=== PATIENT | male | born 1995 | race Caucasian/White ===

== ENCOUNTER 2022-02-21 01:38 | Emergency (ER) | payer OTHER ==
[2022-02-21 01:52] VITALS: BP 130/84; PULSE 66; RESP 18; TEMP 97.4; BMI 31.9
== END 2022-02-21 03:36 | disposition home or self-care (01) ==
LOC: JER 01:38
DX: R07.9 Chest pain, unspecified (principal)
CPT/HCPCS: 71046-TC-FY; 93005; 93010; 99284-25

== ENCOUNTER 2022-07-30 04:24 | Day surgery (SDC) | payer OTHER ==
[2022-07-28 11:40] VITALS: BMI 31.1
[2022-07-30] MEDS ORDERED: BACITRACIN ZINC 15 GM TUBE TOPICAL OINTMENT ONE ×2 (10:45→13:42)
[2022-07-30] MEDS ORDERED: ROCURONIUM BROMIDE 50 MG/5 ML SYRINGE ONE (11:59)
[2022-07-30] MEDS ORDERED: PROPOFOL 20 ML ONE (11:59)
[2022-07-30] MEDS ORDERED: MIDAZOLAM HCL 2 MG/2 ML SINGLE DOSE VIAL ONE (11:59)
[2022-07-30] MEDS ORDERED: HYDROmorphone HCl 2 MG/ML VIAL ONE (12:23)
[2022-07-30] MEDS ORDERED: ONDANSETRON 4 MG/2 ML VIAL ONE (12:34)
[2022-07-30] MEDS ORDERED: DEXAMETHASONE SOD PHOSPHATE 4 MG/1 ML VIAL ONE (12:34)
[2022-07-30] MEDS ORDERED: LIDOCAINE 1%/EPI 1:100000 (20 ML MULTI DOSE VIAL) IJ ONE (12:45)
[2022-07-30] MEDS ORDERED: GLYCOPYRROLATE 0.2 MG/1 ML VIAL ONE (13:21)
[2022-07-30] MEDS ORDERED: NEOSTIGMINE METHYLSULFATE 0.5 MG/1 ML - 10 ML MDV ONE (13:21)
[2022-07-30] MEDS ORDERED: IBUPROFEN 800 MG/8 ML IJ IVPB PRN (14:48)
[2022-07-30] MEDS ORDERED: oxyCODONE HCL 5 MG TABLET PO PRN (14:48)
[2022-07-30] MEDS ORDERED: ONDANSETRON 4 MG/2 ML VIAL IVPUSH PRN (14:48)
[2022-07-30] MEDS ORDERED: LACTATED RINGERS SOLUTION 1,000 ML IV SCH (15:00)
[2022-07-30] MEDS ORDERED: IBUPROFEN 800 MG/8 ML IJ IVPB ONE (15:05)
[2022-07-30 17:27] VITALS: TEMP 97.9
[2022-07-30] MEDS ORDERED: ONDANSETRON *ODT* 4 MG TABLET ONE (18:08)
[2022-07-30] MEDS ORDERED: ONDANSETRON *ODT* 4 MG TABLET SL ONE (18:30)
[2022-07-30 19:31] VITALS: BP 119/65; PULSE 65; RESP 18
== END 2022-07-30 18:45 | disposition home or self-care (01) ==
LOC: JASU-SURG 04:24
PROVIDERS: ATTEND Otolaryngology
PROC: 09CQ8ZZ Extirpation of Matter from Right Maxillary Sinus, Via Natural or Artificial Opening Endoscopic (ICD-10-PCS; 2022-07-30)
PROC: 8E09XBZ Computer Assisted Procedure of Head and Neck Region (ICD-10-PCS; 2022-07-30)
PROC: 09TV8ZZ Resection of Left Ethmoid Sinus, Via Natural or Artificial Opening Endoscopic (ICD-10-PCS; 2022-07-30)
PROC: 09TU8ZZ Resection of Right Ethmoid Sinus, Via Natural or Artificial Opening Endoscopic (ICD-10-PCS; 2022-07-30)
PROC: 09BL8ZZ Excision of Nasal Turbinate, Via Natural or Artificial Opening Endoscopic (ICD-10-PCS; 2022-07-30)
PROC: 0CBQXZZ Excision of Adenoids, External Approach (ICD-10-PCS; 2022-07-30)
PROC: 09CR8ZZ Extirpation of Matter from Left Maxillary Sinus, Via Natural or Artificial Opening Endoscopic (ICD-10-PCS; principal; 2022-07-30 11:30)
DX: J32.9 Chronic sinusitis, unspecified (principal); J33.9 Nasal polyp, unspecified; R09.81 Nasal congestion; J35.2 Hypertrophy of adenoids
CPT/HCPCS: 88304-TC; 88311-TC; 94760; Q0162

== ENCOUNTER 2023-07-13 03:37 | Emergency (ER) | payer OTHER ==
[2023-07-13 03:43] VITALS: BP 141/86; PULSE 90; RESP 18; TEMP 98.5; BMI 33.2
[2023-07-13] MEDS ORDERED: SULFAMETHOXAZOLE/TRIMETHOPRIM 800MG/160MG D.S. TABLET ONE (05:12)
[2023-07-13] MEDS ORDERED: ACETAMINOPHEN 500 MG TABLET (FP) ONE ×2 (05:15→05:16)
[2023-07-13] MEDS: SULFAMETHOXAZOLE/TRIMETHOPRIM 800MG/160MG D.S. TABLET PO ONE (05:17)
[2023-07-13] MEDS ORDERED: ACETAMINOPHEN 500 MG TABLET (FP) PO ONE (05:18)
== END 2023-07-13 05:34 | disposition home or self-care (01) ==
LOC: JER 03:37
DX: L03.114 Cellulitis of left upper limb (principal); L02.414 Cutaneous abscess of left upper limb
CPT/HCPCS: 99283-25

== ENCOUNTER 2023-07-14 22:27 | Emergency (ER) | payer OTHER ==
[2023-07-14 22:32] VITALS: BP 120/74; PULSE 105; RESP 19; TEMP 98.4; BMI 32.8
[2023-07-14] MEDS: PIPERACILLIN/TAZOB 4.5 GM 4.5 GM in DEXTROSE 5%-WATER 100 ML IVPB ONE (23:17)
[2023-07-14] MEDS ORDERED: PIPERACILLIN/TAZOB 3.375 GM 3.375 GM/50 ML BAG IVPB ONE (23:19)
[2023-07-14] MEDS: PIPERACILLIN/TAZOB 3.375 GM 3.375 GM in DEXTROSE 5%-WATER - 50 ML IVPB ONE (23:51)
[2023-07-14 23:58] LABS: BASO % 0.3 % (0-2.0); EOS % 1.7 % (0-4.5); HEMATOCRIT 41.7 % (35.4-49); HEMOGLOBIN 14.3 GM/dL (11.7-16.9); LYMPH % 18.3 % (8-40); MCH 29.4 pg (25.7-33.7); MCHC 34.3 g/dl (32.0-35.9); MEAN CELL VOLUME 85.6 fl (80-96); MONO % 7.6 % (3.8-10.2); NEUT % 72.1 % (42.8-82.8); PLATELET COUNT 321 10^3/uL (134-434); RBC 4.87 M/mm3 (4.00-5.60); RDW 14.1 % (11.9-15.9); WHITE BLOOD COUNT 16.3 K/mm3 (4.0-10.0)
[2023-07-15] MEDS: VANCOMYCIN 1,000 MG in DEXTROSE 5%-WATER - 250 ML IVPB ONE (00:01)
[2023-07-15] MEDS: ACETAMINOPHEN 1000 MG/100 ML BAG IVPB ONE (00:02)
[2023-07-15 00:24] LABS: POTASSIUM 3.8 mmol/L (3.5-5.1)
[2023-07-15 00:26] LABS: CALCIUM 9.2 mg/dL (8.5-10.1)
[2023-07-15 00:27] LABS: BLOOD UREA NITROGEN 15.3 mg/dL (7-18)
[2023-07-15 00:29] LABS: CREATININE 1.4 mg/dL (0.55-1.3)
[2023-07-15 00:31] LABS: BILIRUBIN,TOTAL 0.4 mg/dL (0.2-1); TOT PROT 8.4 g/dl (6.4-8.2)
[2023-07-15 01:00] LABS: ERYTHROCYTE SEDIMENTATION RATE 45 mm/hr (0-10)
== END 2023-07-15 00:17 | disposition short-term general hospital (02) ==
LOC: JER 22:27
DX: M65.842 Other synovitis and tenosynovitis, left hand (principal)
CPT/HCPCS: 36415; 73130-TC-LT-FY; 80053; 85025; 85651; 86140; 87040; 96365; 99285-25